=== PATIENT | female | born 1935 | race African-American/Black ===

== ENCOUNTER 2023-10-14 14:19 | Emergency (ER) | payer OTHER, SELFPAY ==
[2023-10-14 14:22] VITALS: BP 167/110
[2023-10-14 14:36] LABS: % Basophils 1.2 % (0-2); % Eosinophils 4.3 % (0-6); % Immature Granulocytes 0.2 % (0-0.5); % Lymphocytes 23.9 % (20.5-51.1); % Neutrophils 62.4 % (42.2-75.2); Absolute Basophils 0.1 10^3/uL (0-0.2); Absolute Eosinophils 0.3 10^3/uL (0-0.7); Absolute Lymphocytes 1.6 10^3/uL (1.2-3.4); Absolute Monocytes 0.5 10^3/uL (0.1-0.6); Absolute Neutrophils 4.1 10^3/uL (1.4-6.5); Hematocrit 36.4 % (37.0-47.0); Mean Corpuscular Hgb 24.5 pg (27.0-31.0); Mean Corpuscular Volume 74.4 fL (81.0-99.0); Mean Platelet Volume 10.8 fL (7.4-10.4); Nucleated Red Blood Cells % 0 %; Platelet Count 266 10^3/uL (130-400); Red Blood Cell Count 4.89 10^6/uL (4.20-5.40); Red Cell Dist. Width 19.9 % (11.5-14.5); White Blood Cell Count 6.5 10^3/uL (4.8-10.8)
[2023-10-14 15:00] LABS: ALT (SGPT) 22 U/L (0-35); AST (SGOT) 33 U/L (14-36); Albumin 3.9 g/dl (3.5-5.0); Alkaline Phosphatase 68 U/L (38-126); Blood Urea Nitrogen 18 mg/dl (7-17); Calcium 9.4 mg/dl (8.4-10.2); Carbon Dioxide 31 mmol/L (22-30); Chloride 101 mmol/L (98-107); Glucose 92 mg/dl (70-99); Potassium 3.5 mmol/L (3.5-5.1); Sodium 136 mmol/L (135-145); Total Bilirubin 0.7 mg/dl (0.2-1.3); eGFR 33.31
--- NOTE | 2023-10-14 18:50 | ED.GENMED ---
History of Present Illness
General
Chief Complaint: Dizziness
Source: patient
Exam Limitations: none
Time Seen by Provider: 10/14/23 18:04
Nursing documentation reviewed up to this point in time: agreed with
Travel History
Have you had any contact with someone who has COVID-19?: No
Do you have any symptoms of coronavirus? Fever > 100 degrees, chills, cough, shortness of breath, sore throat, loss of taste or smell, muscle aches, or headache?: No
History of Present Illness
History of Present Illness:
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
evaluation of dizziness. Patient presents awake alert. She seems to have difficulty finding words. I spoke with daughter over the phone who states that this is not new. She had a stroke several months ago and is on Eliquis and has had word
finding issues since stroke.
Daughter reports pt came to the ED for complaining of dizziness. Daughter reports she complains of intermittent dizziness for a while this is not new affecting her automobile salesman is aware of this. Daughter reports she is at baseline. She walks on
her own and her balance is normal for her. She has also been complaining of an upset stomach.
Past History
Past History
ED Past Medical History: Arrthythmia (A fib), CAD, HTN, Hypercholesterolemia and Other (Ulcers)
ED Past Surgical History: Appendectomy and Cardiac
Social History
Tobacco: Former smoker
Alcohol: None
Drug: None
Personal:
Living: with family
Employment: Retired
Family History
Family History: Other (Noncontributory)
Phy Exam
General Physical Exam
General Presentation: no apparent distress
General age: appears stated age
General Skin: warm and dry
General Habitus: elderly
General Mental: alert
Cardiovascular Exam
Cardiovascular Exam: regular rate/rhythm, no murmur and normal peripheral pulses
Pulmonary Exam
Pulmonary Exam: lungs clear and no respiratory distress
Neurological Exam
Neurological Exam: alert, oriented x3, no motor deficits, no sensory deficits and other (Patient has clear speech has intermittent difficulty getting words/remembering words(not new))
[place] Coma Scale
Eye Opening: Spontaneous
Verbal Response: Oriented
Motor Response: Obeys Commands
GCS Total Score: 15
Musculoskeletal Exam
Musculoskeletal Exam: full ROM
Skin Exam
Skin Exam: normal color and warm/dry
Psychiatric Exam
Psychiatric Exam: normal mood/affect
Course
Orders/Labs/Results
Orders:
Orders
10/14/23 14:25
EKG [Electrocardiogram (*1)] Urgent
Reason for Study: Vertigo / Dizzy
EKG- Treatment ONCE
10/14/23 14:29
Complete Blood Count/With Diff Urgent
Comprehensive Metabolic Panel Urgent
10/14/23 18:16
CT Head W/o Iv Contrast Urgent
Comment:
Reason For Exam: dizziness
10/14/23 20:55
Amlodipine [Norvasc] 10 mg PO NOW STA
10/14/23 21:00
HydrALAZINE [Apresoline] 10 mg IV NOW STA
10/14/23 21:15
Amlodipine [Norvasc] 10 mg PO NOW STA
Abnormal Lab Results
10/14/23
14:29
Hct 36.4 L %
(37.0-47.0)
MCV 74.4 L fL
(81.0-99.0)
MCH 24.5 L pg
(27.0-31.0)
RDW 19.9 H %
(11.5-14.5)
MPV 10.8 H fL
(7.4-10.4)
Carbon Dioxide 31 H mmol/L
(22-30)
BUN 18 H mg/dl
(7-17)
Creatinine 1.5 H mg/dL
(0.6-1.0)
10/14/23 14:29
10/14/23 14:29
Vital Signs
Initial and Last Documented VS:
Initial Vital Signs
Temp Pulse Resp BP Pulse Ox
98.4 F 73 18 167/110 98
10/14/23 14:22 10/14/23 14:22 10/14/23 14:22 10/14/23 14:22 10/14/23 14:22
Last Documented Vital Signs
Temp Pulse Resp BP Pulse Ox
98.4 F 73 18 176/97 98
10/14/23 14:22 10/14/23 14:22 10/14/23 14:22 10/14/23 22:30 10/14/23 14:22
MDM/Problems Addressed
MDM/Problems Addressed:
Patient is an 87-year-old female that was sent family for evaluation of dizziness. Patient presents awake alert. She has intermittent difficulty getting her words out this is not new as per family. This is since history of CVA. She however is
awake alert oriented able to tell me that she has been intermittently dizzy but denies vertigo sensation. She presents here awake alert no acute distress and is asymptomatic. She denies any recent fall or injury. She is on Eliquis and CAT scan
was done and unremarkable for acute findings.
She has no neurological deficits her labs are baseline patient has been hypertensive here and reviewed past medical records it appears the patient was on Toprol however that was stopped due to hypotension in October 2022. Patient is on amiodarone and
Eliquis for paroxysmal A-fib along with torsemide blood pressure has been elevated here in the ER 200s over 100s with a heart rate in the 60s. d/c w/ ED physician pt was given oral amlodipine as hr in the 60s.
Patient was monitored here continued to deny dizziness ambulating steady gait back and forth to the bathroom and had no symptoms of elevated blood pressure. Patient was discharged home with a prescription for amlodipine. I did review with daughter
the importance of close outpatient follow-up with cardiology Dr. Mathur her automobile salesman and next several days for reevaluation of blood pressure.
Chronic conditions affecting care:
htn afib on eliquis with dizziness, head ct done and neg
*Radiology
Radiology exam reviewed: radiology read reviewed
*Critical Care Note
Total Time (30-74mins, 75-104mins- exclusive of procedures): Not Applicable
ED Attending Note
-
Portions of this chart may have been created with voice recognition software.� Occasional wrong word or��sound alike� substitutions may have occurred due to the inherent limitations of voice recognition software.
Discharge Plan
Departure
Patient Disposition: Home (Routine Discharge)
Date of Disposition: 10/14/23
Time of Disposition: 23:06
Patient with high blood pressure during this ER visit?: Yes
Condition: Fair
Covid-19: Not Applicable
Discharge Problem:
Dizziness
Instructions: Dizziness, BLOOD PRESSURE
Prescriptions:
New
amlodipine 10 mg tablet
10 mg PO DAILY Qty: 30 0RF
No Action
acetaminophen 325 mg Tablet
325 mg PO Q6H PRN (Reason: mild pain/fever)
rosuvastatin 10 mg Tablet
10 mg PO QPM Qty: 30 0RF
amiodarone [Pacerone] 200 mg Tablet
200 mg PO DAILY Qty: 1 0RF
torsemide 10 mg tablet
5 mg PO DAILY Qty: 0 0RF
Eliquis 2.5 mg tablet
2.5 mg PO BID Qty: 60 0RF
Referrals:
Mee Valle MD [Family Provider] -
Corwin Mathur MD [Active] -
Activity Restrictions/Additional Instructions:
As discussed your blood pressure was elevated today and you were started on amlodipine. A prescription was sent to your pharmacy take as directed daily. Follow-up with your automobile salesman in the next several days for reevaluation of your blood.
Return if any worsening of symptoms
Interventions
Interventions:
*Risk Screen - Suicide Last Done: 10/14/23 14:22
*General Assessment Last Done: 10/14/23 14:22
*ED COVID-19 Vaccine History Last Done: 10/14/23 14:22
*Nursing Disposition Last Done: 10/14/23 23:13
ED- Neurological Assessment Last Done: 10/14/23 19:09
ED Swallowing Screen Last Done: 10/14/23 22:33
Discharge Date and Time
Discharge Date/Time: 10/14/23 23:14
Print Language: NAURUAN
[2023-10-14] MEDS: NORVASC 10 MG PO (21:18)
[2023-10-14 22:30] VITALS: BP 176/97
== END 2023-10-14 23:14 | disposition home or self-care (01) ==
LOC: EMR 14:19
PROVIDERS: Emergency Medicine; EMERGENCY PHYSICIAN Emergency Medicine; FAMILY PHYSICIAN Internal Medicine
DX: R42 Dizziness and giddiness (principal); I48.0 Paroxysmal atrial fibrillation; I10 Essential (primary) hypertension; Z87.891 Personal history of nicotine dependence; Z79.01 Long term (current) use of anticoagulants; Z86.73 Personal history of transient ischemic attack (TIA), and cerebral infarction without residual deficits
CPT/HCPCS: 99285; 70450; 80053; 85025; 93005

== ENCOUNTER 2023-12-07 10:46 | Emergency (ER) | payer OTHER, SELFPAY ==
[2023-12-07 10:49] VITALS: BP 135/75
--- NOTE | 2023-12-07 10:55 | ED.MUSCINJ ---
HPI-Injury
General
Chief Complaint: Musculo-Skeletal Complaint
Source: patient and ambulance crew
Exam Limitations: none
Time Seen by Provider: 12/07/23 10:48
Nursing documentation reviewed up to this point in time: agreed with
Travel History
Have you had any contact with someone who has COVID-19?: No
Do you have any symptoms of coronavirus? Fever > 100 degrees, chills, cough, shortness of breath, sore throat, loss of taste or smell, muscle aches, or headache?: No
History of Present Illness-Injury
Initial Injury comments:
88 yo female w h/o A-fib on Eliquis, HTN, HLD, LA, GERD, TIA presents from home via EMS after reportedly falling last p.m., patient is unclear about the specifics but she thinks she was laying on the floor for about an hour. She states she tripped
over something on the floor and fell. She does not think she hit her head, she denies headache. Her neck is sore chronically, nothing new since fall. She has significant pain in the right rib area.
Past History
Past History
ED Past Medical History: Arrthythmia (A fib), CAD, HTN, Hypercholesterolemia and Other (Ulcers)
ED Past Surgical History: Appendectomy and Cardiac
Social History
Tobacco: Former smoker
Alcohol: None
Drug: None
Personal:
Living: with family (Lives with daughter)
Employment: Retired
Family History
Family History: Other (Noncontributory)
Review of Systems
Review of Systems
Allergies reviewed?: Yes
All Other Systems: ROS reviewed and negative except as documented in HPI and ROS
Constitutional: Denies fever
Respiratory: Denies cough or trouble breathing
Cardiac: Denies chest pain
ABD/GI: Denies abdominal pain, nausea, vomiting or diarrhea
: Denies dysuria
Musculoskeletal: Reports other (Right rib pain)
Skin: Reports no symptoms
Neurological: Reports no symptoms
Phy Exam
Physical Exam
Physical Exam:
GENERAL: No acute distress. A&Ox3.
CONSTITUTIONAL: Afebrile.
EYES: PERRL, conjunctivae normal
Neck: Supple
ENMT: moist mucus membranes, Pharynx nl
RESPIRATORY: Regular respirations, nonlabored, lungs clear.
CARDIOVASCULAR: Regular rate and rhythm, + murmur, no rubs.
GI: Soft, nontender, normal BS
MUSCULOSKELETAL: No spinal bony tenderness. Tender right ribs. Moves with ease. Well perfused.
SKIN: Warm, dry, normal
PSYCH: Normal mood and affect. Well kept, interactive and appropriate
NEUROLOGIC: Awake, alert and oriented. No focal neurological deficits
Injury Course
Orders/Labs/Results
Orders:
Orders
12/07/23 10:54
Morphine Sulfate 2 mg IV NOW STA
12/07/23 10:57
CT Head W/o Iv Contrast Urgent
Comment:
Reason For Exam: fall on Eliquis, ? head injury
12/07/23 10:59
CT Cervical Spine W/o Iv Contr Urgent
Comment:
Reason For Exam: fall
12/07/23 11:00
CT Chest W/o Iv Contrast Urgent
Comment:
Reason For Exam: fall, significant right rib pain, on Eliquis
12/07/23 11:21
CPK Isoenzyme Urgent
Complete Blood Count/With Diff Urgent
Comprehensive Metabolic Panel Urgent
Urinalysis Reflex To Culture Urgent
Date Specimen was Collected: 12/07/23
Time Specimen was Collected: 11:11
Abnormal Lab Results
12/07/23
11:21
WBC 11.4 H 10^3/uL
(4.8-10.8)
MCV 73.9 L fL
(81.0-99.0)
MCH 24.4 L pg
(27.0-31.0)
RDW 21.0 H %
(11.5-14.5)
Abs Immat Gran (auto) 0.1 H 10^3/uL
(0-0.05)
Absolute Neuts (auto) 9.2 H 10^3/uL
(1.4-6.5)
Absolute Lymphs (auto) 1.0 L 10^3/uL
(1.2-3.4)
Absolute Monos (auto) 0.9 H 10^3/uL
(0.1-0.6)
Neutrophils % 81.0 H %
(42.2-75.2)
Lymphocytes % 9.0 L %
(20.5-51.1)
BUN 21 H mg/dl
(7-17)
Creatinine 1.2 H mg/dL
(0.6-1.0)
Glucose 125 H mg/dl
(70-99)
12/07/23 11:21
12/07/23 11:21
MDM/Problems Addressed
Differential Diagnosis Includes:
Fractured ribs, pneumothorax, hemothorax
MDM/Problems Addressed:
88 yo female w h/o A-fib on Eliquis, HTN, HLD, LA, GERD, TIA presents from home via EMS after reportedly falling last p.m., patient is unclear about the specifics but she thinks she was laying on the floor for about an hour. She states she tripped
over something on the floor and fell. She does not think she hit her head, she denies headache. Her neck is sore chronically, nothing new since fall. She has significant pain in the right rib area.
1135 a.m.
Spoke with daughter on phone: She states pt was stepping over boxes on floor about 7 p.m. yesterday she fell and landed on her rear end between 2 chairs in the living room. Daughter left her at about 7 p.m. to visit a neighbor, came back about
an hour later and found pt sitting on floor after fall. They couldn't get her up so called 911 who helped her up. Daughter states at that time pt complained of no pain, also no complaint of the pain this morning at breakfast. They checked her out,
vitals were stable, no pain so they left. This morning daughter gave her breakfast, her medicine, no complaint of pain. Then daughter walked outside for a minute, came back in and pt was on the phone calling EMS and when they came she did not want
to come to hospital but was complaining of right rib pain.
12:50 PM
CBC with no clinically significant abnormality
CMP with no clinically significant abnormality consistent with her chronic kidney disease
UA negative
Head CT: Radiology report read: No acute findings
C-spine CT radiology report read no acute finding, severe discogenic degenerative disease
CT of chest radiology report read: IMPRESSION:
1. No CT evidence for acute traumatic injury in the chest.
2. Moderate cardiomegaly.
3. Severe calcific atherosclerotic plaque in the coronary arteries and thoracic aorta.
4. Fusiform ascending thoracic aortic aneurysm (4.5 cm diameter).
5. Mild centrilobular emphysema.
6. Mildly enlarged thyroid gland containing a 1.5 cm nodule.
7. Distended duodenal bulb.
8. Multiple bilateral renal masses (a simple cyst, a hemorrhagic cyst, an angiomyolipoma, and an 8mm mass on the left which could be renal cell carcinoma).
Patient has been out of bed and ambulating well
Daughter will pick her up
Chronic conditions affecting care: HTN and Arrhythmia (On Eliquis)
*Critical Care Note
Total Time (30-74mins, 75-104mins- exclusive of procedures): Not Applicable
ED Attending Note
-
Portions of this chart may have been created with voice recognition software.� Occasional wrong word or��sound alike� substitutions may have occurred due to the inherent limitations of voice recognition software.
Discharge Plan
Departure
Patient Disposition: Home (Routine Discharge)
Date of Disposition: 12/07/23
Time of Disposition: 13:10
Patient with high blood pressure during this ER visit?: No
Condition: Good
Discharge Problem:
Fall from slip, trip, or stumble, Bruised rib
Instructions: Bruised Rib (DC)
Prescriptions:
No Action
acetaminophen 325 mg Tablet
325 mg PO Q6H PRN (Reason: mild pain/fever)
rosuvastatin 10 mg Tablet
10 mg PO QPM Qty: 30 0RF
amiodarone [Pacerone] 200 mg Tablet
200 mg PO DAILY Qty: 1 0RF
torsemide 10 mg tablet
5 mg PO DAILY Qty: 0 0RF
Eliquis 2.5 mg tablet
2.5 mg PO BID Qty: 60 0RF
amlodipine 10 mg tablet
10 mg PO DAILY Qty: 30 0RF
Referrals:
Mee Valle MD [Family Provider] - Follow up in 5-7 days
Activity Restrictions/Additional Instructions:
As we discussed, Tylenol as needed for pain.
Your head CT shows nothing worrisome
Your neck CT shows nothing worrisome
Your chest CT shows no broken ribs or any other worrisome findings of the chest.
You have some spots on your kidneys that were seen on the CT scan, please discuss these findings with your doctor next week.
See your doctor in 5-7 days for recheck.
Interventions
Interventions:
*Risk Screen - Suicide Last Done: 12/07/23 10:49
*General Assessment Last Done: 12/07/23 10:49
*Neglect/Abuse Screening Last Done: 12/07/23 10:49
ED- Fall Risk Assessment Last Done: 12/07/23 11:30
*ED COVID-19 Vaccine History Last Done: 12/07/23 11:32
*Nursing Disposition Last Done: 12/07/23 14:19
ED-Musculoskeletal Assessment Last Done: 12/07/23 11:29
Discharge Date and Time
Discharge Date/Time: 12/07/23 14:20
Print Language: LUX[place]BOURGISH
[2023-12-07] MEDS: MORPHINE SULFATE 2 MG IV (11:11)
[2023-12-07 11:29] LABS: % Basophils 0.8 % (0-2); Absolute Basophils 0.1 10^3/uL (0-0.2); Absolute Eosinophils 0.1 10^3/uL (0-0.7); Hemoglobin 12.9 g/dL (12.0-16.0); Nucleated Red Blood Cells % 0 %; Urine Albumin Negative (Neg - Trace); Urine Bilirubin Negative (Negative); Urine Character Clear (Clear); Urine Color Yellow; Urine Glucose Negative (Negative); Urine Ketone Negative (Negative); Urine Leukocyte Negative (Negative); Urine Nitrite Negative (Negative); Urine Occult Blood Negative (Negative); Urine Urobilinogen Negative (Neg - 1+)
[2023-12-07 11:34] LABS: % Eosinophils 1.2 % (0-6); % Immature Granulocytes 0.4 % (0-0.5); % Monocytes 7.6 % (1.7-9.3); Absolute Immature Granulocytes 0.1 10^3/uL (0-0.05); Absolute Monocytes 0.9 10^3/uL (0.1-0.6); Absolute Neutrophils 9.2 10^3/uL (1.4-6.5); Hematocrit 39.1 % (37.0-47.0); Mean Corpuscular Hgb 24.4 pg (27.0-31.0); Mean Corpuscular Volume 73.9 fL (81.0-99.0); Red Blood Cell Count 5.29 10^6/uL (4.20-5.40); White Blood Cell Count 11.4 10^3/uL (4.8-10.8)
[2023-12-07 11:41] LABS: ALT (SGPT) 19 U/L (0-35); AST (SGOT) 36 U/L (14-36); Albumin 4.2 g/dl (3.5-5.0); Alkaline Phosphatase 55 U/L (38-126); Blood Urea Nitrogen 21 mg/dl (7-17); Calcium 9.5 mg/dl (8.4-10.2); Carbon Dioxide 30 mmol/L (22-30); Chloride 102 mmol/L (98-107); Glucose 125 mg/dl (70-99); Potassium 3.7 mmol/L (3.5-5.1); Sodium 140 mmol/L (135-145); Total CK 97 U/L (30-135); Total Protein 7.5 g/dl (6.3-8.2); eGFR 43.27
[2023-12-07 12:21] LABS: Platelet Count 241 10^3/uL (130-400)
[2023-12-07 13:39] VITALS: BP 131/74
[2023-12-07 14:19] VITALS: BP 124/74
== END 2023-12-07 14:20 | disposition home or self-care (01) ==
LOC: EMR 10:46
PROVIDERS: Registered Nurse; EMERGENCY PHYSICIAN Emergency Medicine; FAMILY PHYSICIAN Internal Medicine
DX: S29.9XXA Unspecified injury of thorax, initial encounter (principal); R07.81 Pleurodynia; W18.09XA Striking against other object with subsequent fall, initial encounter; I51.7 Cardiomegaly; I70.0 Atherosclerosis of aorta; I71.21 Aneurysm of the ascending aorta, without rupture; J43.2 Centrilobular emphysema; N28.89 Other specified disorders of kidney and ureter; I48.91 Unspecified atrial fibrillation; I25.10 Atherosclerotic heart disease of native coronary artery without angina pectoris; G47.30 Sleep apnea, unspecified; I10 Essential (primary) hypertension; M54.2 Cervicalgia; G89.29 Other chronic pain; E78.00 Pure hypercholesterolemia, unspecified; I25.2 Old myocardial infarction; Z79.01 Long term (current) use of anticoagulants; Z86.73 Personal history of transient ischemic attack (TIA), and cerebral infarction without residual deficits; Z87.891 Personal history of nicotine dependence
CPT/HCPCS: 99284; 96374; 70450; 71250; 72125; 80053; 81003; 82550; 82553; 85025

== ENCOUNTER 2024-02-19 13:35 | Emergency (ER) | payer OTHER, SELFPAY ==
[2024-02-19 13:51] VITALS: BP 116/62
[2024-02-19 14:38] LABS: % Basophils 0.6 % (0-2); % Eosinophils 2.2 % (0-6); % Immature Granulocytes 0.3 % (0-0.5); % Lymphocytes 14.7 % (20.5-51.1); % Monocytes 11.1 % (1.7-9.3); % Neutrophils 71.1 % (42.2-75.2); ALT (SGPT) 35 U/L (0-35); AST (SGOT) 48 U/L (14-36); Absolute Basophils 0.1 10^3/uL (0-0.2); Absolute Eosinophils 0.2 10^3/uL (0-0.7); Absolute Lymphocytes 1.3 10^3/uL (1.2-3.4); Absolute Neutrophils 6.2 10^3/uL (1.4-6.5); Albumin 3.9 g/dl (3.5-5.0); Alkaline Phosphatase 87 U/L (38-126); Blood Urea Nitrogen 25 mg/dl (7-17); Calcium 9.8 mg/dl (8.4-10.2); Carbon Dioxide 31 mmol/L (22-30); Chloride 100 mmol/L (98-107); Glucose 97 mg/dl (70-99); Hematocrit 38.1 % (37.0-47.0); Hemoglobin 12.8 g/dL (12.0-16.0); Mean Corp Hgb Conc. 33.6 g/dL (33.0-37.0); Mean Corpuscular Hgb 24.6 pg (27.0-31.0); Mean Corpuscular Volume 73.1 fL (81.0-99.0); Mean Platelet Volume 10.5 fL (7.4-10.4); Nucleated Red Blood Cells % 0 %; Platelet Count 298 10^3/uL (130-400); Potassium 3.2 mmol/L (3.5-5.1); Red Blood Cell Count 5.21 10^6/uL (4.20-5.40); Red Cell Dist. Width 20.8 % (11.5-14.5); Sodium 136 mmol/L (135-145); Total Bilirubin 0.8 mg/dl (0.2-1.3); Total Protein 7.1 g/dl (6.3-8.2); White Blood Cell Count 8.7 10^3/uL (4.8-10.8); eGFR 30.64
[2024-02-19 15:01] LABS: Lipase 142 U/L (23-300)
[2024-02-19 17:01] VITALS: BP 103/71
[2024-02-19] MEDS: NSS 1000 IV (17:03)
[2024-02-19 18:23] VITALS: BP 129/71
--- NOTE | 2024-02-19 18:28 | ED.GENMED ---
History of Present Illness
General
Chief Complaint: Abdominal Symptoms
Time Seen by Provider: 02/19/24 16:32
History of Present Illness
History of Present Illness:
88-year-old female with history of hypertension, hyperlipidemia, atrial fibrillation, CHF, dementia presenting to the emergency department for abdominal pain with nausea and diarrhea. Patient arrives with son and daughter reports symptoms for the
past few days. Patient has been complaining of lower abdominal pain and fecal incontinence secondary to not being able to make it to the bathroom from multiple episodes of diarrhea. If she denies any vomiting. No reported fever or sick contacts.
No report of any unusual foods preceding symptoms. Patient denies any chest pain or difficulty breathing. Denies any significant abdominal surgeries, had an appendectomy about 30 years ago. No additional symptoms reported at this time.
Past History
Past History
ED Past Medical History: Arrthythmia (A fib), CAD, HTN, Hypercholesterolemia and Other (Ulcers)
ED Past Surgical History: Appendectomy and Cardiac
Social History
Tobacco: Former smoker
Alcohol: None
Drug: None
Personal:
Living: with family (Lives with daughter)
Employment: Retired
Family History
Family History: Other (Noncontributory)
Phy Exam
Physical Exam
Physical Exam:
General: Well-appearing, no clinical signs of dehydration, nontoxic and in no acute distress
HEENT: protecting airway
Neck: appears supple
CV: Normal heart rate, regular rhythm, no evidence of cyanosis
Resp: No accessory muscle use, no increased work of breathing, lungs clear to auscultation bilaterally
Abd: Soft and non-distended, generalized tenderness to lower abdomen, left greater than right
Extremities: No deformities, no swelling, no erythema, pulses and sensation intact
Neuro: alert, no focal neurologic deficit
: deferred
Rectal: deferred
Psych: Normal affect
Skin: Intact
Course
Orders/Labs/Results
Orders:
Orders
02/19/24 13:56
Electrocardiogram (*1) Urgent
Reason for Study: Abdominal Pain
EKG- Treatment ONCE
02/19/24 14:04
CMP [Comprehensive Metabolic Panel] Urgent
Complete Blood Count/With Diff Urgent
Lipase Urgent
02/19/24 16:42
CT Abd/pelvis W Iv Cont Urgent
Comment:
Reason For Exam: generalized pain, diarrhea
0.9% Sodium Chloride 1000 ml [Nss] 1,000 ml IV BOLUS
02/19/24 18:24
Urinalysis Reflex To Culture Urgent
Date Specimen was Collected: 02/19/24
Time Specimen was Collected: 18:11
02/19/24 19:18
Amoxicillin 875 mg/Clav 125 mg [Augmentin 875 mg/125 mg] 1 tablet PO NOW STA
Abnormal Lab Results
02/19/24
14:04
MCV 73.1 L fL
(81.0-99.0)
MCH 24.6 L pg
(27.0-31.0)
RDW 20.8 H %
(11.5-14.5)
MPV 10.5 H fL
(7.4-10.4)
Absolute Monos (auto) 1.0 H 10^3/uL
(0.1-0.6)
Lymphocytes % 14.7 L %
(20.5-51.1)
Monocytes % 11.1 H %
(1.7-9.3)
Potassium 3.2 L mmol/L
(3.5-5.1)
Carbon Dioxide 31 H mmol/L
(22-30)
BUN 25 H mg/dl
(7-17)
Creatinine 1.6 H mg/dL
(0.6-1.0)
AST 48 H U/L
(14-36)
08/21/24 14:04
02/19/24 14:04
Vital Signs
Initial and Last Documented VS:
Initial Vital Signs
Temp Pulse Resp BP Pulse Ox
97.7 F 70 18 116/62 97
02/19/24 13:51 02/19/24 13:51 02/19/24 13:51 02/19/24 13:51 02/19/24 13:51
Last Documented Vital Signs
Temp Pulse Resp BP Pulse Ox
97.7 F 70 18 129/71 98
02/19/24 13:51 02/19/24 13:51 02/19/24 13:51 02/19/24 18:23 02/19/24 18:24
MDM/Problems Addressed
MDM/Problems Addressed:
88-year-old female with history of hypertension, hyperlipidemia, CHF, A-fib, dementia presenting for abdominal pain with diarrhea for the past several days. Vital signs on arrival are normal.
On exam, patient well-appearing, no acute distress, nontoxic. On abdominal exam, generalized tenderness to the lower abdomen with differential considerations enteritis versus cystitis versus diverticulitis. Nursing protocol placed prior to my
assessment with laboratory analysis. No leukocytosis. Normal electrolyte panel and renal function. Will plan for CT abdomen and pelvis. Will start on IV fluids
19:20 -patient's labs relatively unremarkable, without concern for severe dehydration. CT shows evidence of severe uncomplicated colitis. On reassessment, patient reports that she has not had any additional episodes of diarrhea since being in the
hospital. Discussed diagnostic considerations of C. difficile colitis, however family notes that she has not having that much frequency of diarrhea, no recent antibiotic use, no sick contacts or recent hospitalization. At this time low suspicion
for C. difficile. However, given patient's age and severity of colitis, will start on antibiotic. Patient otherwise remains hemodynamically stable, able to tolerate p.o. Stable for discharge with outpatient monitoring and follow-up. Advised
continued oral hydration and nutrition. Strict return precautions communicated to patient and son and daughter at bedside, who verbalized understanding
*Critical Care Note
Total Time (30-74mins, 75-104mins- exclusive of procedures): Not Applicable
ED Attending Note
-
Portions of this chart may have been created with voice recognition software.� Occasional wrong word or��sound alike� substitutions may have occurred due to the inherent limitations of voice recognition software.
Discharge Plan
Departure
Prescriptions:
No Action
acetaminophen 325 mg Tablet
325 mg PO Q6H PRN (Reason: mild pain/fever)
rosuvastatin 10 mg Tablet
10 mg PO QPM Qty: 30 0RF
amiodarone [Pacerone] 200 mg Tablet
200 mg PO DAILY Qty: 1 0RF
torsemide 10 mg tablet
5 mg PO DAILY Qty: 0 0RF
Eliquis 2.5 mg tablet
2.5 mg PO BID Qty: 60 0RF
amlodipine 10 mg tablet
10 mg PO DAILY Qty: 30 0RF
Referrals:
UNKNOWN - PT DOES,NOT KNOW [Family Provider] -
Interventions
Interventions:
*Risk Screen - Suicide Last Done: 02/19/24 18:00
*General Assessment Last Done: 02/19/24 18:00
*Neglect/Abuse Screening Last Done: 02/19/24 18:00
AF-Kvyzur-Gowxsqnofe Assessment Last Done: 02/19/24 18:00
Discharge Date and Time
Print Language: [id number]
[2024-02-19 18:30] LABS: Urine Albumin Negative (Neg - Trace); Urine Bilirubin Negative (Negative); Urine Character Clear (Clear); Urine Color Yellow; Urine Glucose Negative (Negative); Urine Ketone Negative (Negative); Urine Leukocyte Negative (Negative); Urine Nitrite Negative (Negative); Urine Occult Blood Negative (Negative); Urine Urobilinogen Negative (Neg - 1+)
[2024-02-19 19:00] VITALS: BP 113/78
== END 2024-02-19 19:35 | disposition home or self-care (01) ==
LOC: EMR 13:35
PROVIDERS: Physician Assistant Medical; EMERGENCY PHYSICIAN Student in an Organized Health Care Education/Training Program
DX: K52.9 Noninfective gastroenteritis and colitis, unspecified (principal); I11.0 Hypertensive heart disease with heart failure; I50.9 Heart failure, unspecified; I48.91 Unspecified atrial fibrillation; F03.90 Unspecified dementia, unspecified severity, without behavioral disturbance, psychotic disturbance, mood disturbance, and anxiety; E78.00 Pure hypercholesterolemia, unspecified; I25.10 Atherosclerotic heart disease of native coronary artery without angina pectoris; Z87.891 Personal history of nicotine dependence; Z79.01 Long term (current) use of anticoagulants; Z88.5 Allergy status to narcotic agent; Z88.7 Allergy status to serum and vaccine
CPT/HCPCS: 99285; 96360; 74177; 80053; 81003; 83690; 85025; 93005; Q9967